=== PATIENT | male | born 1980 | race Caucasian/White ===

== ENCOUNTER 2019-07-21 12:25 | Emergency (ER) | payer OTHER ==
[2019-07-21] MEDS ORDERED: Ketorolac 60 MG/2 ML SDV IM ONE (12:54)
--- NOTE | 2019-07-21 13:01 | EDM.PDOC ---
ED HPI GENERAL MEDICAL PROBLEM - General Chief Complaint: Lower Extremity Injury/Pain Stated Complaint: R ANKLE INJURY Time Seen by Provider: 07/21/19 12:42 Source of Information: Reports: Patient, RN Notes Reviewed History Limitations: Reports: No Limitations - History of Present Illness INITIAL COMMENTS - FREE TEXT/NARRATIVE: Patient is a 39-year-old male who presents to the ED for the evaluation of his right ankle injury. 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 He believes that he rolled his ankle inward due to the ice. He states the lateral part of his ankle is very painful, and a lot of swelling. Patient states he is not able to walk very well but is able to bear weight on the extremity. Patient did not take any Tylenol/ibuprofen, as he worked all night through the injury, furthermore he did not ice the injury or have it elevated. Patient states he is able to move his toes, and is not having any numbness or tingling distal to the injury, nor is he having any pain in his knee. 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 Right Ankle Pain Score (Numeric/FACES): 10 - Related Data Allergies Allergy/AdvReac Type Severity Reaction Status Date / Time No Known Allergies Allergy Verified 07/21/19 12:45 Home Meds: Home Meds Acetaminophen/HYDROcodone [Whiteface 325-5 MG] 1 tab PO Q6H PRN #8 tablet 07/21/19 [ Rx] Past Medical History - Past Health History Medical/Surgical History: Denies Medical/Surgical History Social & Family History - Tobacco Use Smoking Status *Q: Current Every Day Smoker Tobacco Use Within Last Twelve Months: Cigarettes Years of Tobacco use: 6 Packs/Tins Daily: 0.5 - Caffeine Use Caffeine Use: Reports: Coffee, Soda, Tea - Recreational Drug Use Recreational Drug Use: No Review of Systems - Review of Systems Review Of Systems: Comprehensive ROS is negative, except as noted in HPI. ED EXAM, GENERAL - Physical Exam Exam: See Below Exam Limited By: No Limitations General Appearance: Alert, WD/WN, No Apparent Distress Throat/Mouth: Normal Inspection, Normal Lips, Normal Teeth, Normal Gums, Normal Oropharynx, Normal Voice, No Airway Compromise Head: Atraumatic, Normocephalic Neck: Normal Inspection Respiratory/Chest: No Respiratory Distress, Lungs Clear, Normal Breath Sounds, No Accessory Muscle Use, Chest Non-Tender Cardiovascular: Normal Peripheral Pulses, Regular Rate, Rhythm, No Murmur Peripheral Pulses: 3+: Dorsalis Pedis (L), Dorsalis Pedis (R) Extremities: Normal Capillary Refill, Joint Swelling (R lateral ankle), Limited Range of Motion (of R ankle d/t pain) Neurological: Alert, Oriented, Normal Cognition, No Motor/Sensory Deficits Psychiatric: Normal Affect, Normal Mood Skin Exam: Warm, Dry, Intact, Normal Color, No Rash Course - Vital Signs Last Recorded V/S: Last Vital Signs Temp 97.5 F 07/21/19 12:44 Pulse 95 07/21/19 12:44 Resp 20 07/21/19 12:44 BP 143/83 H 07/21/19 12:44 Pulse Ox 100 07/21/19 12:44 - Orders/Labs/Meds Orders: Active Orders 24 hr Category Date Time Status Ankle Min 3V Rt [CR] Stat Exams 07/21/19 12:46 Ordered Meds: Medications Discontinued Medications Generic Name Dose Route Start Last Admin Trade Name Freq PRN Reason Stop Dose Admin Ketorolac Tromethamine 60 mg 07/21/19 12:54 Toradol IM 07/21/19 12:55 ONETIME ONE - Re-Assessments/Exams Free Text/Narrative Re-Assessment/Exam: 07/21/19 12:59 Patient presents to the ED for the evaluation of his ankle injury. I did order x-rays at time of triage, and the patient will be given a 60 mg IM injection of Toradol for pain management. Early suspect moderate sprain in nature versus fracture, there are no visible deformities noted. 07/21/19 13:23 Patient's ankle x-ray elicits no obvious fracture or abnormality, reviewed by myself and Dr. Kenyon. Official radiology read pending. Patient will be discharged home with general recommendations. Departure - Departure Time of Disposition: 13:01 Disposition: Home, Self-Care 01 Condition: Fair Clinical Impression: Moderate right ankle sprain Qualifiers: Encounter type: initial encounter Qualified Code(s): S93.401A - Sprain of unspecified ligament of right ankle, initial encounter - Discharge Information *PRESCRIPTION DRUG MONITORING PROGRAM REVIEWED*: Yes *COPY OF PRESCRIPTION DRUG MONITORING REPORT IN PATIENT KAROLYN: No Instructions: How to Use a Stirrup Ankle Brace, [id number], Ankle Exercises- SportsMed Referrals: PCP,Not In Area [Primary Care Provider] - Forms: ED Department Discharge, ED Return to Work/School Form Additional Instructions: You have been evaluated in the ED for your right ankle injury. Your x-ray demonstrated no acute fracture or bony abnormality. Please use ice as tolerated to the affected area. Please try to elevate the affected area to relieve swelling. You may take Tylenol 500 mg or ibuprofen 600mg q6 hrs for pain relief. Please do so until you have a tolerable level of pain with activity. Do not exceed 4000mg Tylenol or 3200mg ibuprofen in a 24 hour time period. You were given a prescription for a strong pain medication, hydrocodone/ acetaminophen 5/325, please take 1 tab every 6 hours as needed for pain not relieved by Tylenol or ibuprofen alone. Please note this medication does contain Tylenol in it, so do not take more than 4000 mg in a 24-hour time span. These medications can be addictive, so please take as few as possible to achieve adequate pain control. These meds can also be quite constipating, recommend that you increase your oral fluid intake and take a stool softener like MiraLAX while taking these medications. Do not drive while taking this medication. Please return to ED if your symptoms should change or worsen. Sepsis Event Note - Evaluation Sepsis Screening Result: No Definite Risk - Focused Exam Vital Signs: Vital Signs Temp Pulse Resp BP Pulse Ox 07/21/19 12:44 97.5 F 95 20 143/83 H 100 Date Exam was Performed: 07/21/19 Time Exam was Performed: 12:55 - My Orders Last 24 Hours: My Active Orders 07/21/19 12:46 Ankle Min 3V Rt [CR] Stat - Assessment/Plan Last 24 Hours: My Active Orders 07/21/19 12:46 Ankle Min 3V Rt [CR] Stat
--- NOTE | 2019-07-21 14:51 | CR ---
Right ankle: Four views of the right ankle were obtained. Comparison: No previous ankle study. Soft tissue swelling is identified. Ankle mortise is symmetric. No fracture, dislocation or other bony abnormality is seen. Impression: 1. Soft tissue swelling. 2. No bony abnormality is seen on right ankle exam. Diagnostic code #2 This report was dictated in [place] Standard Time
== END 2019-07-21 13:43 | disposition home or self-care (01) ==
LOC: JD.ED 12:25
DX: S93.401A Sprain of unspecified ligament of right ankle, initial encounter (principal); F17.210 Nicotine dependence, cigarettes, uncomplicated; V69.9XXA Occupant (driver) (passenger) of heavy transport vehicle injured in unspecified traffic accident, initial encounter
CPT/HCPCS: 73610; 96372; 99283; J1885